=== PATIENT | female | born 1970 | race Caucasian/White ===

== ENCOUNTER 2016-10-03 13:39 | Emergency (ER) | payer MEDICAID ==
[~2016-10-03] VITALS: Ht 174 cm; Wt 65.5 kg
[2016-10-03 13:42] VITALS: BP 136/93
== END 2016-10-03 15:08 | disposition left against medical advice (07) ==
LOC: ED 15:02
DX: R68.84 Jaw pain (principal); Z88.0 Allergy status to penicillin; Z88.8 Allergy status to other drugs, medicaments and biological substances

== ENCOUNTER 2017-05-02 11:01 | Emergency (ER) | payer MEDICAID ==
[~2017-05-02] VITALS: Ht 172.7 cm; Wt 66.4 kg
[2017-05-02] MEDS ORDERED: SODIUM CHLORIDE 0.9% 1,000 ML IV ONE (11:59)
[2017-05-02] MEDS ORDERED: SODIUM CHLORIDE 0.9% 1,000ML IVBOLUS ONE (12:00)
[2017-05-02 13:35] VITALS: BP 132/78
[2017-05-02 13:38] LABS: BASOPHILS # (AUTO) 0.01 x10^3/uL (0-0.1); BASOPHILS % (AUTO) 0 % (0-1); EOSINOPHILS # (AUTO) 0.02 x10^3/uL (0-0.4); EOSINOPHILS % (AUTO) 0 % (1-7); LYMPHOCYTES # (AUTO) 0.89 x10^3/uL (1-3.4); LYMPHOCYTES % (AUTO) 9 % (22-44); MD NO; MEAN CORPUSCULAR HEMOGLOBIN 31.1 pg (27.0-34.8); MEAN CORPUSCULAR HGB CONC 33.5 g/dL (32.4-35.8); MEAN CORPUSCULAR VOLUME 92.9 fL (80-100); MEAN PLATELET VOLUME 6.6 fL (7.4-10.4); MONOCYTES % (AUTO) 8 % (2-9); NEUTROPHILS # (AUTO) 8.27 x10^3/uL (1.8-6.8); NEUTROPHILS % (AUTO) 83 % (42-75); PLATELET COUNT 260 x10^3/uL (130-400); RED BLOOD COUNT 4.52 x10^6/uL (3.82-5.3)
[2017-05-02 13:50] LABS: ALBUMIN 3.4 g/dL (3.4-5.0); ANION GAP 5 mmol/L (5-15); CALCIUM 8.5 mg/dL (8.5-10.1); CHLORIDE 103 mmol/L (98-107); CREATININE 0.73 mg/dL (0.55-1.02)
[2017-05-02 13:53] LABS: MICROSCOPIC INDICATED
[2017-05-02] MEDS ORDERED: KETOROLAC 30 MG/1 ML IM ONE (14:00)
[2017-05-02 14:04] LABS: CULTURE INDICATED? YES
== END 2017-05-02 14:21 | disposition home or self-care (01) ==
LOC: ED 14:15
DX: J06.9 Acute upper respiratory infection, unspecified (principal); N30.00 Acute cystitis without hematuria; F17.210 Nicotine dependence, cigarettes, uncomplicated; F15.10 Other stimulant abuse, uncomplicated; Z88.0 Allergy status to penicillin
CPT/HCPCS: 36415; 71046; 80048; 81001; 82040; 85025; 87077; 87086; 87186; 93005; 99285

== ENCOUNTER 2017-09-15 20:12 | Emergency (ER) | payer MEDICAID ==
[~2017-09-15] VITALS: Ht 172.7 cm; Wt 70.9 kg
[2017-09-15 20:13] VITALS: BP 127/81
[2017-09-15] MEDS ORDERED: IBUPROFEN 200 MG TABLET PO ONE (20:30)
[2017-09-15] MEDS ORDERED: IBUPROFEN 200 MG TABLET ONE (20:36)
[2017-09-15] MEDS ORDERED: DEXAMETHASONE 4 MG TABLET ONE (20:36)
== END 2017-09-15 21:09 | disposition home or self-care (01) ==
LOC: ED 21:03
DX: J02.8 Acute pharyngitis due to other specified organisms (principal); B97.89 Other viral agents as the cause of diseases classified elsewhere
CPT/HCPCS: 99281

== ENCOUNTER 2018-01-03 21:49 | Emergency (ER) | payer MEDICAID ==
[~2018-01-03] VITALS: Ht 172.7 cm; Wt 70.0 kg
[2018-01-03 21:54] VITALS: BP 132/85
[2018-01-04 00:07] LABS: MICROSCOPIC INDICATED
[2018-01-04 00:09] LABS: BASOPHILS % (AUTO) 0 % (0-1); EOSINOPHILS # (AUTO) 0.07 x10^3/uL (0-0.4); EOSINOPHILS % (AUTO) 1 % (1-7); LYMPHOCYTES # (AUTO) 0.37 x10^3/uL (1-3.4); LYMPHOCYTES % (AUTO) 3 % (22-44); MD NO; MEAN CORPUSCULAR HEMOGLOBIN 32.1 pg (27.0-34.8); MEAN CORPUSCULAR HGB CONC 33.9 g/dL (32.4-35.8); MEAN CORPUSCULAR VOLUME 94.9 fL (80-100); MEAN PLATELET VOLUME 7.2 fL (7.4-10.4); MONOCYTES # (AUTO) 0.47 x10^3/uL (0.2-0.8); MONOCYTES % (AUTO) 3 % (2-9); NEUTROPHILS % (AUTO) 94 % (42-75); PLATELET COUNT 278 x10^3/uL (130-400); RED BLOOD COUNT 4.89 x10^6/uL (3.82-5.3); RED CELL DISTRIBUTION WIDTH 13.5 % (9.6-15.2)
[2018-01-04 00:12] LABS: AMPHETAMINE SCREEN, URINE Positive (Negative); BARBITURATE SCREEN, URINE Negative (Negative); BENZODIAZEPINE SCREEN, URINE Negative (Negative); CANNABINOID SCREEN, URINE Positive (Negative); COCAINE SCREEN, URINE Negative (Negative); METHADONE SCREEN, URINE Negative (Negative); OPIATE SCREEN, URINE Negative (Negative)
[2018-01-04 00:19] LABS: ALANINE AMINOTRANSFERASE 31 U/L (12-78); ALBUMIN 3.8 g/dL (3.4-5.0); ANION GAP 3 mmol/L (5-15); CALCIUM 8.8 mg/dL (8.5-10.1); CHLORIDE 105 mmol/L (98-107); CREATININE 0.94 mg/dL (0.55-1.02)
[2018-01-04 00:23] LABS: ALKALINE PHOSPHATASE 82 U/L (45-117); BILIRUBIN,TOTAL 0.8 mg/dL (0.2-1.0); TOTAL PROTEIN 8.2 g/dL (6.4-8.2)
[2018-01-04 01:02] LABS: CULTURE INDICATED? NO
== END 2018-01-04 01:56 | disposition home or self-care (01) ==
LOC: ED 23:59
DX: R10.13 Epigastric pain (principal); R11.2 Nausea with vomiting, unspecified; Z72.9 Problem related to lifestyle, unspecified
CPT/HCPCS: 36415; 80053; 80307; 81001; 83690; 84703; 85025; 99284

== ENCOUNTER 2018-01-11 17:34 | Emergency (ER) | payer MEDICAID ==
[~2018-01-11] VITALS: Ht 172.7 cm; Wt 70.0 kg
[2018-01-11 17:38] VITALS: BP 145/99
== END 2018-01-11 18:19 | disposition left against medical advice (07) ==
LOC: ED 18:13
DX: S61.511A Laceration without foreign body of right wrist, initial encounter (principal); F17.200 Nicotine dependence, unspecified, uncomplicated; W19.XXXA Unspecified fall, initial encounter; Y93.89 Activity, other specified; Y92.410 Unspecified street and highway as the place of occurrence of the external cause; Y99.8 Other external cause status
CPT/HCPCS: 99283

== ENCOUNTER 2018-07-06 23:42 | Emergency (ER) | payer MEDICAID ==
[~2018-07-06] VITALS: Ht 172.7 cm; Wt 68.0 kg
[2018-07-06 23:51] VITALS: BP 126/78
== END 2018-07-07 00:07 | disposition home or self-care (01) ==
LOC: ED 07-07 00:01
DX: F15.10 Other stimulant abuse, uncomplicated (principal); Z76.0 Encounter for issue of repeat prescription; Z72.9 Problem related to lifestyle, unspecified
CPT/HCPCS: 99283

== ENCOUNTER 2018-07-25 02:07 | Emergency (ER) | payer MEDICAID ==
[~2018-07-25] VITALS: Ht 172.7 cm; Wt 67.5 kg
[2018-07-25 02:12] VITALS: BP 166/104
--- NOTE | 2018-07-25 02:43 | NUR ---
PT presented with c/o rash and itching, pt reports itching " all over my body", pt refusing to answer further questions, stated " i'm not answering anything until i get something to stop the itching", notified pt that erp will be in to see her, pt denies further needs at this time
[2018-07-25] MEDS ORDERED: DEXAMETHASONE 4 MG TABLET ONE (03:17)
[2018-07-25] MEDS ORDERED: DIPHENHYDRAMINE 25 MG CAPSULE ONE (03:17)
--- NOTE | 2018-07-25 03:20 | NUR ---
pt medicated per mar
[2018-07-25] MEDS ORDERED: DEXAMETHASONE 4 MG TABLET PO ONE (03:30)
[2018-07-25] MEDS ORDERED: DIPHENHYDRAMINE 25 MG CAPSULE PO ONE (03:30)
--- NOTE | 2018-07-25 03:45 | NUR ---
pt refusing vs, denies needs a this time
== END 2018-07-25 04:13 | disposition home or self-care (01) ==
LOC: ED 02:58
DX: R21 Rash and other nonspecific skin eruption (principal); F15.10 Other stimulant abuse, uncomplicated; F15.129 Other stimulant abuse with intoxication, unspecified; F45.8 Other somatoform disorders; Z72.9 Problem related to lifestyle, unspecified; F17.200 Nicotine dependence, unspecified, uncomplicated; F41.1 Generalized anxiety disorder; F32.9 Major depressive disorder, single episode, unspecified
CPT/HCPCS: 99283; Q0163

== ENCOUNTER 2018-08-03 21:10 | Emergency (ER) | payer MEDICAID ==
[~2018-08-03] VITALS: Ht 172.7 cm; Wt 69.1 kg
[2018-08-03 21:22] VITALS: BP 132/84
--- NOTE | 2018-08-03 21:56 | NUR ---
REPORT TO CURLY ZACARIAS WHO ASSUMED CARE OF PT.
[2018-08-03] MEDS ORDERED: IBUPROFEN 800 MG TABLET PO ONE (22:00)
[2018-08-03] MEDS ORDERED: IBUPROFEN 200 MG TABLET ONE (22:01)
--- NOTE | 2018-08-03 22:49 | NUR ---
Pt given warm blanket, crackers and water per request and PA authorization
== END 2018-08-03 23:31 | disposition home or self-care (01) ==
LOC: ED 22:15
DX: B34.9 Viral infection, unspecified (principal)
CPT/HCPCS: 71046; 99283

== ENCOUNTER 2018-09-28 02:01 | Emergency (ER) | payer MEDICAID ==
[~2018-09-28] VITALS: Ht 172.7 cm; Wt 66.5 kg
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
--- NOTE | 2018-09-28 02:34 | NUR ---
PT BACK TO ROOM NOW.
[2018-09-28 04:02] VITALS: BP 113/79
--- NOTE | 2018-09-28 04:08 | NUR ---
PT SLEEPING IN [place]. RESPS EVEN AND UNLABORED. BP/SPO2 MONITORS IN PLACE. CALL LIGHT WITHIN REACH. AWAITING DC NOW.
--- NOTE | 2018-09-28 04:14 | NUR ---
PT GIVEN DC INSTRUCTIONS. PT'S AOX4. RESPS EVEN AND UNLABORED. NO ACUTE DISTRESS AT DC.
== END 2018-09-28 04:15 | disposition home or self-care (01) ==
LOC: ED 02:16
DX: S05.12XA Contusion of eyeball and orbital tissues, left eye, initial encounter (principal); G89.11 Acute pain due to trauma; M25.531 Pain in right wrist; Z72.9 Problem related to lifestyle, unspecified; Y04.8XXA Assault by other bodily force, initial encounter; Y93.89 Activity, other specified; Y92.89 Other specified places as the place of occurrence of the external cause; Y99.8 Other external cause status
CPT/HCPCS: 70486; 99284

== ENCOUNTER 2018-10-11 20:20 | Emergency (ER) | payer MEDICAID ==
[~2018-10-11] VITALS: Ht 172.7 cm; Wt 65.6 kg
[2018-10-11 20:22] VITALS: BP 118/82
[2018-10-11] MEDS ORDERED: IBUPROFEN 800 MG TABLET PO ONE (21:00)
[2018-10-11] MEDS ORDERED: IBUPROFEN 200 MG TABLET ONE (21:03)
--- NOTE | 2018-10-11 21:50 | NUR ---
PT STATES UNABLE TO URINATE. ERP NOTIFIED.
== END 2018-10-11 22:14 | disposition home or self-care (01) ==
LOC: ED 20:42
DX: G89.11 Acute pain due to trauma (principal); R10.2 Pelvic and perineal pain; M54.2 Cervicalgia; Z72.9 Problem related to lifestyle, unspecified; F32.9 Major depressive disorder, single episode, unspecified; F17.200 Nicotine dependence, unspecified, uncomplicated; V03.99XA Pedestrian with other conveyance injured in collision with car, pick-up truck or van, unspecified whether traffic or nontraffic accident, initial encounter; Y93.89 Activity, other specified; Y92.410 Unspecified street and highway as the place of occurrence of the external cause; Y99.8 Other external cause status
CPT/HCPCS: 72110; 72125; 72190; 99284

== ENCOUNTER 2019-03-08 08:32 | Inpatient (IN) | payer MEDICAID ==
[~2019-03-08] VITALS: Ht 172.7 cm; Wt 72.1 kg
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
--- NOTE | 2019-03-08 10:25 | NUR ---
PT TO BE ADMITTED, PIV INITIATED, LAB IN TO DRAW PT. NAD NOTED
[2019-03-08] MEDS ORDERED: CEFTRIAXONE PMX 1GM/50ML 50 ML ONE (10:29)
[2019-03-08] MEDS ORDERED: AZITHROMYCIN 500 MG in SODIUM CHLORIDE 0.9% 250 ML IVPB ONE (10:30)
[2019-03-08] MEDS ORDERED: CEFTRIAXONE PMX 1GM/50ML 50 ML IVPB ONE (10:30)
[2019-03-08] MEDS ORDERED: SODIUM CHLORIDE FLUSH 10ML SYR IVF ONE (10:30)
--- NOTE | 2019-03-08 10:39 | NUR ---
AWAITING BC TO ADMIN ABX
--- NOTE | 2019-03-08 10:57 | NUR ---
ABX AMEYA, PT RESTING ON GURRADHA, NAD NOTED
[2019-03-08 11:01] LABS: ALANINE AMINOTRANSFERASE 72 U/L (12-78); ALBUMIN 2.7 g/dL (3.4-5.0); ANION GAP 9 mmol/L (5-15); CALCIUM 8.7 mg/dL (8.5-10.1); CHLORIDE 95 mmol/L (98-107); CREATININE 0.94 mg/dL (0.55-1.02)
[2019-03-08 11:03] LABS: ALKALINE PHOSPHATASE 246 U/L (45-117); BILIRUBIN,TOTAL 1.5 mg/dL (0.2-1.0); TOTAL PROTEIN 8.5 g/dL (6.4-8.2)
[2019-03-08 11:04] LABS: MEAN CORPUSCULAR HEMOGLOBIN 31.6 pg (27.0-34.8); MEAN CORPUSCULAR HGB CONC 32.6 g/dL (32.4-35.8); MEAN CORPUSCULAR VOLUME 96.8 fL (80-100); MEAN PLATELET VOLUME 6.9 fL (7.4-10.4); PLATELET COUNT 305 x10^3/uL (130-400); RED BLOOD COUNT 4.38 x10^6/uL (3.82-5.3); RED CELL DISTRIBUTION WIDTH 13.6 % (9.6-15.2)
[2019-03-08 11:22] LABS: BASOPHILS # (AUTO) 0.01 x10^3/uL (0-0.1); BASOPHILS % (AUTO) 0 % (0-1); EOSINOPHILS % (AUTO) 0 % (1-7); LYMPHOCYTES % (AUTO) 5 % (22-44); MD SCAN; MONOCYTES # (AUTO) 1.08 x10^3/uL (0.2-0.8); MONOCYTES % (AUTO) 6 % (2-9); NEUTROPHILS # (AUTO) 15.35 x10^3/uL (1.8-6.8); NEUTROPHILS % (AUTO) 89 % (42-75)
[2019-03-08] MEDS ORDERED: SODIUM CHLORIDE FLUSH 10ML SYR IVF PRN (11:30)
--- NOTE | 2019-03-08 12:06 | NUR ---
REPORT TO BERNADETTE RAWLS, AWAITING TRANSPORT
--- NOTE | 2019-03-08 12:25 | NUR ---
RASH NOTED ON BILAT THIGHS, ADMITTING MD AT BEDSIDE, AZITHROMYCIN STOPPED PER MD ORDER.
--- NOTE | 2019-03-08 12:57 | NUR ---
ATTEMPTED TO CALL REPORT, RN TO CALL BACK
[2019-03-08] MEDS ORDERED: BISACODYL 10 MG SUPP PR PRN (13:00)
[2019-03-08] MEDS ORDERED: DOCUSATE 100 MG CAPSULE PO PRN (13:00)
[2019-03-08] MEDS ORDERED: POLYETHYLENE GLYCOL 17 GM PACKET PO PRN (13:00)
[2019-03-08] MEDS ORDERED: SODIUM CHLORIDE 0.9% 1,000ML IVBOLUS ONE (13:00)
[2019-03-08] MEDS ORDERED: ONDANSETRON 2MG/ML, 2ML IVPush PRN (13:00)
--- NOTE | 2019-03-08 13:18 | NUR ---
REPORT CALLED, AWAITING TRANSPORT
[2019-03-08 13:25] LABS: TROPONIN I < 0.015 ng/mL (0.000-0.045)
[2019-03-08 14:28] VITALS: BP 107/69
[2019-03-08] MEDS: LEVOFLOXACIN/PMX 750MG/150ML 150 ML IV SCH (14:43)
[2019-03-08] MEDS: NS + 20MEQ KCL 1,000 ML IV SCH (14:43)
[2019-03-08 15:58] LABS: RAPID INFLUENZA A Negative (Negative); RAPID INFLUENZA B Negative (Negative)
[2019-03-08] MEDS: ACETAMINOPHEN 325 MG TABLET PO PRN ×2 (16:18→20:41)
[2019-03-08] MEDS: LACTOBACILLUS CHEW TABLET PO SCH ×2 (16:18→20:41)
[2019-03-08 18:09] LABS: TROPONIN I < 0.015 ng/mL (0.000-0.045)
[2019-03-08 20:17] VITALS: BP 93/57
[2019-03-09 02:00] VITALS: BP 98/69
[2019-03-09] MEDS: NS + 20MEQ KCL 1,000 ML IV SCH ×2 (02:06→15:29)
[2019-03-09 04:56] LABS: BASOPHILS % (AUTO) 0 % (0-1); EOSINOPHILS # (AUTO) 0.04 x10^3/uL (0-0.4); EOSINOPHILS % (AUTO) 0 % (1-7); LYMPHOCYTES # (AUTO) 1.39 x10^3/uL (1-3.4); LYMPHOCYTES % (AUTO) 10 % (22-44); MD NO; MEAN CORPUSCULAR HEMOGLOBIN 31.7 pg (27.0-34.8); MEAN CORPUSCULAR HGB CONC 32.8 g/dL (32.4-35.8); MEAN CORPUSCULAR VOLUME 96.9 fL (80-100); MEAN PLATELET VOLUME 6.7 fL (7.4-10.4); MONOCYTES # (AUTO) 1.25 x10^3/uL (0.2-0.8); MONOCYTES % (AUTO) 9 % (2-9); NEUTROPHILS # (AUTO) 10.65 x10^3/uL (1.8-6.8); NEUTROPHILS % (AUTO) 80 % (42-75); PLATELET COUNT 297 x10^3/uL (130-400); RED BLOOD COUNT 3.78 x10^6/uL (3.82-5.3); RED CELL DISTRIBUTION WIDTH 13.6 % (9.6-15.2)
[2019-03-09 05:00] LABS: ALBUMIN 1.9 g/dL (3.4-5.0); ANION GAP 4 mmol/L (5-15); CHLORIDE 106 mmol/L (98-107)
[2019-03-09 05:12] LABS: % IRON SATURATION 16 % (20-55); ALANINE AMINOTRANSFERASE 45 U/L (12-78); ALKALINE PHOSPHATASE 193 U/L (45-117); CALCIUM 8.2 mg/dL (8.5-10.1); CREATINE KINASE, TOTAL 25 U/L (26-192); IRON LEVEL 33 mcg/dL (50-170); TOTAL IRON BINDING CAPACITY 211 mcg/dL (250-450); TOTAL PROTEIN 6.6 g/dL (6.4-8.2)
[2019-03-09] MEDS: LACTOBACILLUS CHEW TABLET PO SCH ×4 (05:16→20:33)
[2019-03-09] MEDS: ACETAMINOPHEN 325 MG TABLET PO PRN ×2 (05:49→10:47)
[2019-03-09 08:00] VITALS: BP 90/55
[2019-03-09] MEDS ORDERED: SODIUM CHLORIDE 0.9% 1,000 ML IV SCH (08:00)
[2019-03-09] MEDS: LEVOFLOXACIN/PMX 750MG/150ML 150 ML IV SCH (12:51)
[2019-03-09 13:23] VITALS: BP 99/63
[2019-03-09] MEDS: ENOXAPARIN 40 MG/0.4 ML SQ SCH (15:31)
[2019-03-09] MEDS: GUAIFENESIN 200 MG TABLET PO SCH ×2 (15:31→20:33)
[2019-03-09] MEDS ORDERED: OMNIPAQUE 350 MG/ML, 100ML BOTTLE ONE (17:31)
[2019-03-09 20:13] VITALS: BP 106/70
[2019-03-10] MEDS: NS + 20MEQ KCL 1,000 ML IV SCH ×2 (00:48→13:57)
[2019-03-10 01:39] VITALS: BP 108/67
[2019-03-10 05:33] LABS: BASOPHILS # (AUTO) 0.02 x10^3/uL (0-0.1); BASOPHILS % (AUTO) 0 % (0-1); EOSINOPHILS % (AUTO) 1 % (1-7); LYMPHOCYTES # (AUTO) 1.29 x10^3/uL (1-3.4); LYMPHOCYTES % (AUTO) 11 % (22-44); MD NO; MEAN CORPUSCULAR HEMOGLOBIN 31.6 pg (27.0-34.8); MEAN CORPUSCULAR HGB CONC 32.7 g/dL (32.4-35.8); MEAN CORPUSCULAR VOLUME 96.9 fL (80-100); MEAN PLATELET VOLUME 6.7 fL (7.4-10.4); MONOCYTES # (AUTO) 0.83 x10^3/uL (0.2-0.8); MONOCYTES % (AUTO) 7 % (2-9); NEUTROPHILS # (AUTO) 9.04 x10^3/uL (1.8-6.8); NEUTROPHILS % (AUTO) 80 % (42-75); PLATELET COUNT 369 x10^3/uL (130-400); RED BLOOD COUNT 3.57 x10^6/uL (3.82-5.3)
[2019-03-10 05:39] LABS: ALBUMIN 1.8 g/dL (3.4-5.0); ANION GAP 4 mmol/L (5-15); CALCIUM 7.9 mg/dL (8.5-10.1); CHLORIDE 106 mmol/L (98-107)
[2019-03-10 05:43] LABS: ALANINE AMINOTRANSFERASE 33 U/L (12-78); ALKALINE PHOSPHATASE 194 U/L (45-117); BILIRUBIN,TOTAL 0.3 mg/dL (0.2-1.0); CREATININE 0.68 mg/dL (0.55-1.02); TOTAL PROTEIN 6.1 g/dL (6.4-8.2)
[2019-03-10] MEDS: GUAIFENESIN 200 MG TABLET PO SCH ×4 (06:21→20:39)
[2019-03-10] MEDS: LACTOBACILLUS CHEW TABLET PO SCH ×4 (06:21→20:39)
[2019-03-10 06:40] VITALS: BP 99/56
[2019-03-10] MEDS: LEVOFLOXACIN/PMX 750MG/150ML 150 ML IV SCH (12:21)
[2019-03-10] MEDS: ENOXAPARIN 40 MG/0.4 ML SQ SCH (14:00)
[2019-03-10 14:59] VITALS: BP 119/75
[2019-03-10 20:08] VITALS: BP 117/76
[2019-03-11 01:24] VITALS: BP 103/68
[2019-03-11 04:40] LABS: BASOPHILS # (AUTO) 0.04 x10^3/uL (0-0.1); BASOPHILS % (AUTO) 0 % (0-1); EOSINOPHILS % (AUTO) 1 % (1-7); LYMPHOCYTES # (AUTO) 1.55 x10^3/uL (1-3.4); LYMPHOCYTES % (AUTO) 18 % (22-44); MD NO; MEAN CORPUSCULAR HEMOGLOBIN 31.4 pg (27.0-34.8); MEAN CORPUSCULAR HGB CONC 32.4 g/dL (32.4-35.8); MEAN CORPUSCULAR VOLUME 96.9 fL (80-100); MEAN PLATELET VOLUME 6.3 fL (7.4-10.4); MONOCYTES # (AUTO) 0.66 x10^3/uL (0.2-0.8); MONOCYTES % (AUTO) 8 % (2-9); NEUTROPHILS # (AUTO) 6.28 x10^3/uL (1.8-6.8); NEUTROPHILS % (AUTO) 73 % (42-75); PLATELET COUNT 476 x10^3/uL (130-400); RED BLOOD COUNT 3.75 x10^6/uL (3.82-5.3); RED CELL DISTRIBUTION WIDTH 14.2 % (9.6-15.2)
[2019-03-11] MEDS: NS + 20MEQ KCL 1,000 ML IV SCH (05:07)
[2019-03-11] MEDS: LACTOBACILLUS CHEW TABLET PO SCH ×2 (05:08→11:38)
[2019-03-11] MEDS: GUAIFENESIN 200 MG TABLET PO SCH ×2 (05:08→11:38)
[2019-03-11 07:02] VITALS: BP 114/75
[2019-03-11] MEDS ORDERED: LEVOFLOXACIN 750 MG TABLET PO SCH (09:00)
[2019-03-11] MEDS: ACETAMINOPHEN 325 MG TABLET PO PRN (09:37)
== END 2019-03-11 12:45 | disposition left against medical advice (07) | DRG 871 ==
LOC: ED 10:25 → EDIP 11:25 → SUATTDRO 11:32 → 4WST 14:01
PROVIDERS: ADMIT Internal Medicine; ATTEND Internal Medicine
DX: A41.9 Sepsis, unspecified organism (principal); J18.1 Lobar pneumonia, unspecified organism; E87.1 Hypo-osmolality and hyponatremia; E87.6 Hypokalemia; E88.09 Other disorders of plasma-protein metabolism, not elsewhere classified; Z59.0 Homelessness; Z53.29 Procedure and treatment not carried out because of patient's decision for other reasons; Z88.0 Allergy status to penicillin; Z88.8 Allergy status to other drugs, medicaments and biological substances
CPT/HCPCS: 36415; 71046; 71260; 76700; 80053; 80074; 82550; 83540; 83550; 83605; 83735; 84100; 84145; 84443; 84484; 85025; 87040; 87400; 93005; 99285; G0378; J0456; J0696; J1650; J1956; J3480; Q9967; J7030; J7050

== ENCOUNTER 2019-03-30 00:38 | Emergency (ER) | payer MEDICAID ==
[~2019-03-30] VITALS: Ht 172.7 cm; Wt 69.0 kg
[2019-03-30 00:51] VITALS: BP 145/97
--- NOTE | 2019-03-30 00:51 | NUR ---
FIRST CONTACT WITH PT. PT REPORTS CHEST PRESSURE(RIGHT SIDED RIB PAIN) AND SOB SEEN HERE FOR SAME SEVERAL DAYS AGO PER PT. PT REFUSED EKG IN TRIAGE. PT'S AOX4. RESPS EVEN AND UNLABORED. BP/SPO2 MONITORS IN PLACE. CALL LIGHT WITHIN REACH. EDMD AT BEDSIDE TO EVALUAT AT THIS TIME.
[2019-03-30] MEDS ORDERED: IBUPROFEN 600 MG TABLET ONE (00:58)
[2019-03-30] MEDS ORDERED: IBUPROFEN 600 MG TABLET PO ONE (01:00)
== END 2019-03-30 01:47 | disposition home or self-care (01) ==
LOC: ED 01:03
DX: R07.89 Other chest pain (principal); F17.200 Nicotine dependence, unspecified, uncomplicated
CPT/HCPCS: 93005; 99283

== ENCOUNTER 2019-03-31 05:41 | Emergency (ER) | payer MEDICAID ==
[~2019-03-31] VITALS: Ht 172.7 cm; Wt 69.8 kg
[2019-03-31] MEDS ORDERED: SODIUM CHLORIDE FLUSH 10ML SYR IVF ONE (06:00)
--- NOTE | 2019-03-31 06:19 | NUR ---
PT WITH IV STARTED AND BLOOD TO LAB. PT AWARE OF NEED FOR URINE.
[2019-03-31 06:28] LABS: BASOPHILS # (AUTO) 0.07 x10^3/uL (0-0.1); BASOPHILS % (AUTO) 1 % (0-1); EOSINOPHILS # (AUTO) 0.07 x10^3/uL (0-0.4); EOSINOPHILS % (AUTO) 1 % (1-7); LYMPHOCYTES # (AUTO) 1.41 x10^3/uL (1-3.4); LYMPHOCYTES % (AUTO) 23 % (22-44); MD NO; MEAN CORPUSCULAR HEMOGLOBIN 31.7 pg (27.0-34.8); MEAN CORPUSCULAR HGB CONC 32.8 g/dL (32.4-35.8); MEAN CORPUSCULAR VOLUME 96.7 fL (80-100); MEAN PLATELET VOLUME 6.4 fL (7.4-10.4); MONOCYTES # (AUTO) 0.49 x10^3/uL (0.2-0.8); MONOCYTES % (AUTO) 8 % (2-9); NEUTROPHILS % (AUTO) 66 % (42-75); PLATELET COUNT 294 x10^3/uL (130-400)
[2019-03-31 06:36] LABS: ALBUMIN 3.4 g/dL (3.4-5.0); ANION GAP 5 mmol/L (5-15); CALCIUM 8.7 mg/dL (8.5-10.1); CHLORIDE 106 mmol/L (98-107)
[2019-03-31 06:42] LABS: ALANINE AMINOTRANSFERASE 25 U/L (12-78); ALKALINE PHOSPHATASE 96 U/L (45-117); BILIRUBIN,TOTAL 0.7 mg/dL (0.2-1.0); CREATININE 0.86 mg/dL (0.55-1.02); TOTAL PROTEIN 7.9 g/dL (6.4-8.2)
[2019-03-31] MEDS ORDERED: OMNIPAQUE 350 MG/ML, 100ML BOTTLE ONE (06:45)
--- NOTE | 2019-03-31 07:04 | NUR ---
PATIET AWARE URINE SAMPLE NEEDED, HOWEVER REFUSING AT THIS TIME.
--- NOTE | 2019-03-31 07:04 | NUR ---
REPORT RECIEVED FROM FRANCIA RAWLS. PATIENT TO IMAGING
--- NOTE | 2019-03-31 08:02 | NUR ---
PATIENT RESTING IN BED, NO COMPLAINTS AT THIS TIME.
[2019-03-31 08:11] VITALS: BP 116/59
--- NOTE | 2019-03-31 08:11 | NUR ---
DISCHARGE INSTRUCTIONS REVIEWED
--- NOTE | 2019-03-31 08:18 | NUR ---
PATIENT REFUSED DISCHARGE PAPERWORK/PRESCRIPTION.
== END 2019-03-31 08:21 | disposition home or self-care (01) ==
LOC: ED 06:22
DX: K59.00 Constipation, unspecified (principal); R10.31 Right lower quadrant pain; R10.11 Right upper quadrant pain; J15.9 Unspecified bacterial pneumonia; F17.210 Nicotine dependence, cigarettes, uncomplicated
CPT/HCPCS: 36415; 74177; 80053; 83690; 84703; 85025; 99284; Q9967

== ENCOUNTER 2019-06-01 21:24 | Emergency (ER) | payer MEDICAID ==
[~2019-06-01] VITALS: Ht 172.7 cm; Wt 71.5 kg
[2019-06-01] MEDS ORDERED: IBUPROFEN 600 MG TABLET PO ONE (22:00)
[2019-06-01] MEDS ORDERED: IBUPROFEN 200 MG TABLET ONE (22:00)
[2019-06-01] MEDS ORDERED: IBUPROFEN 200 MG TABLET PO ONE (22:00)
[2019-06-01 23:50] VITALS: BP 131/80
== END 2019-06-02 00:03 | disposition home or self-care (01) ==
LOC: ED 23:58
DX: M25.572 Pain in left ankle and joints of left foot (principal); L03.116 Cellulitis of left lower limb
CPT/HCPCS: 99283

== ENCOUNTER 2019-06-03 01:24 | Emergency (ER) | payer MEDICAID ==
[~2019-06-03] VITALS: Ht 165.1 cm; Wt 68.0 kg
--- NOTE | 2019-06-03 01:33 | NUR ---
pt with c/o chest pain that started last night. sternal. 12/01. no n/v. also c/o foot pain in the left foot from a wound that she was seen here for yesterday. also c/o pain in the neck and both wrists
[2019-06-03] MEDS ORDERED: CEFTRIAXONE 1,000 MG IM ONE (02:00)
[2019-06-03] MEDS ORDERED: SULFAMETH./TRIMETHOPRIM DS 800MG/160MG TABLET PO ONE (02:00)
[2019-06-03 02:17] LABS: BASOPHILS # (AUTO) 0.01 x10^3/uL (0-0.1); BASOPHILS % (AUTO) 0 % (0-1); EOSINOPHILS # (AUTO) 0.06 x10^3/uL (0-0.4); EOSINOPHILS % (AUTO) 1 % (1-7); LYMPHOCYTES % (AUTO) 13 % (22-44); MD NO; MEAN CORPUSCULAR HEMOGLOBIN 30.7 pg (27.0-34.8); MEAN CORPUSCULAR HGB CONC 33.6 g/dL (32.4-35.8); MEAN CORPUSCULAR VOLUME 91.2 fL (80-100); MEAN PLATELET VOLUME 6.1 fL (7.4-10.4); MONOCYTES # (AUTO) 0.77 x10^3/uL (0.2-0.8); MONOCYTES % (AUTO) 8 % (2-9); NEUTROPHILS % (AUTO) 79 % (42-75); PLATELET COUNT 307 x10^3/uL (130-400); RED BLOOD COUNT 4.47 x10^6/uL (3.82-5.3); RED CELL DISTRIBUTION WIDTH 13.2 % (9.6-15.2)
[2019-06-03 02:30] LABS: ALBUMIN 3.1 g/dL (3.4-5.0); ANION GAP 3 mmol/L (5-15); CALCIUM 8.5 mg/dL (8.5-10.1); CHLORIDE 105 mmol/L (98-107)
[2019-06-03 02:34] LABS: TROPONIN I < 0.015 ng/mL (0.000-0.045)
[2019-06-03] MEDS ORDERED: SULFAMETH./TRIMETHOPRIM DS 800MG/160MG TABLET ONE (03:12)
[2019-06-03] MEDS ORDERED: CEFTRIAXONE 1,000 MG ONE (03:12)
[2019-06-03] MEDS ORDERED: LIDOCAINE-MPF 1%, 2ML ONE ×2 (03:13→03:14)
[2019-06-03 03:26] VITALS: BP 134/83
--- NOTE | 2019-06-03 04:10 | NUR ---
pt provided a cane for help walking since she has pain in the right heal of the foot. pt ambulatory independently with a cane to the discharge desk. pt provided taxi voucher to location of her choice.
== END 2019-06-03 04:13 | disposition home or self-care (01) ==
LOC: ED 02:59
DX: L03.116 Cellulitis of left lower limb (principal); R07.89 Other chest pain; R06.02 Shortness of breath
CPT/HCPCS: 36415; 71045; 80048; 82040; 84484; 84703; 85025; 93005; 96372; 99285; J0696

== ENCOUNTER 2019-10-28 04:01 | Emergency (ER) | payer MEDICAID ==
[~2019-10-28] VITALS: Ht 170.2 cm; Wt 72.2 kg
--- NOTE | 2019-10-28 04:07 | NUR ---
PT CALLED FOR TRIAGE NA. PT IN BATHROOM
[2019-10-28 04:08] VITALS: BP 124/85
== END 2019-10-28 04:25 ==
LOC: ED 04:19
DX: B35.0 Tinea barbae and tinea capitis (principal); F17.210 Nicotine dependence, cigarettes, uncomplicated
CPT/HCPCS: 99282; 99406

== ENCOUNTER 2020-01-21 05:13 | Emergency (ER) | payer MEDICAID ==
[~2020-01-21] VITALS: Ht 172.7 cm; Wt 69.9 kg
--- NOTE | 2020-01-21 05:16 | NUR ---
[employer]: PT CALLED FOR TRIAGE. NO ANSWER
[2020-01-21 05:24] VITALS: BP 114/80
--- NOTE | 2020-01-21 05:29 | NUR ---
49/F. Pt feeling faint, hands went numb, went to a friends then had a syncopal episode. Pt states "I rested then came here". H/A.
[2020-01-21 06:11] LABS: BASOPHILS # (AUTO) 0.02 x10^3/uL (0-0.1); BASOPHILS % (AUTO) 0 % (0-1); EOSINOPHILS # (AUTO) 0.04 x10^3/uL (0-0.4); EOSINOPHILS % (AUTO) 1 % (1-7); LYMPHOCYTES # (AUTO) 1.31 x10^3/uL (1-3.4); LYMPHOCYTES % (AUTO) 24 % (22-44); MD NO; MEAN CORPUSCULAR HEMOGLOBIN 30.8 pg (27.0-34.8); MEAN CORPUSCULAR HGB CONC 32.6 g/dL (32.4-35.8); MEAN PLATELET VOLUME 6.5 fL (7.4-10.4); MONOCYTES # (AUTO) 0.33 x10^3/uL (0.2-0.8); MONOCYTES % (AUTO) 6 % (2-9); NEUTROPHILS # (AUTO) 3.68 x10^3/uL (1.8-6.8); NEUTROPHILS % (AUTO) 69 % (42-75); PLATELET COUNT 255 x10^3/uL (130-400); RED BLOOD COUNT 4.54 x10^6/uL (3.82-5.3); RED CELL DISTRIBUTION WIDTH 13.4 % (9.6-15.2)
[2020-01-21 06:20] LABS: ALANINE AMINOTRANSFERASE 25 U/L (12-78); ALBUMIN 3.6 g/dL (3.4-5.0); CALCIUM 8.9 mg/dL (8.5-10.1); CREATININE 0.89 mg/dL (0.55-1.02)
[2020-01-21 06:22] LABS: ALKALINE PHOSPHATASE 77 U/L (45-117); BILIRUBIN,TOTAL 0.7 mg/dL (0.2-1.0); TOTAL PROTEIN 7.8 g/dL (6.4-8.2)
[2020-01-21 06:30] LABS: ANION GAP 6 mmol/L (5-15); CHLORIDE 109 mmol/L (98-107)
--- NOTE | 2020-01-21 07:13 | NUR ---
Report given to CURLY Stacy
== END 2020-01-21 08:34 | disposition home or self-care (01) ==
LOC: ED 06:26
DX: R42 Dizziness and giddiness (principal); R55 Syncope and collapse
CPT/HCPCS: 36415; 80053; 80307; 85025; 93005; 99284

== ENCOUNTER 2020-03-03 03:54 | Emergency (ER) | payer MEDICAID ==
[~2020-03-03] VITALS: Ht 172.7 cm; Wt 73.5 kg
--- NOTE | 2020-03-03 04:03 | NUR ---
UTILIZATION SPECIALIST: PT CALLED FOR TRIAGE NO ANSWER
[2020-03-03 04:14] VITALS: BP 155/90
--- NOTE | 2020-03-03 04:28 | NUR ---
PT STATES IN TRIAGE "I HAVE MOCTEZUMA BITE ON MY RIGHT HAND, I GOT IT QUICK, I WAS ONLY OUT THERE FOR LIKE 20 MINUTES. BUT IT THAWED OUT", PT IN NAD ON [employer] READING A MAGAZINE
== END 2020-03-03 04:41 | disposition home or self-care (01) ==
LOC: ED 04:30
DX: T33.522A Superficial frostbite of left hand, initial encounter (principal); T33.521A Superficial frostbite of right hand, initial encounter; Z88.0 Allergy status to penicillin; X58.XXXA Exposure to other specified factors, initial encounter; Y93.89 Activity, other specified; Y92.410 Unspecified street and highway as the place of occurrence of the external cause; Y99.8 Other external cause status
CPT/HCPCS: 99282

== ENCOUNTER 2020-07-06 05:47 | Emergency (ER) | payer MEDICAID ==
[~2020-07-06] VITALS: Ht 172.7 cm; Wt 75.0 kg
[2020-07-06 05:48] VITALS: BP 117/78
--- NOTE | 2020-07-06 06:14 | NUR ---
PT SHOUTING AT RN UPON DC, SECURITY TO ASSIST WITH DC
== END 2020-07-06 06:15 | disposition home or self-care (01) ==
LOC: ED 06:11
DX: M79.641 Pain in right hand (principal); M79.642 Pain in left hand; F17.200 Nicotine dependence, unspecified, uncomplicated; X31.XXXA Exposure to excessive natural cold, initial encounter; Y93.89 Activity, other specified; Y92.89 Other specified places as the place of occurrence of the external cause; Y99.8 Other external cause status
CPT/HCPCS: 99283

== ENCOUNTER 2020-12-10 04:59 | Emergency (ER) | payer MEDICAID ==
[~2020-12-10] VITALS: Ht 174 cm; Wt 72.6 kg
[2020-12-10 05:04] VITALS: BP 130/83
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
== END 2020-12-10 05:22 | disposition left against medical advice (07) ==
LOC: ED 05:10
DX: R51.9 Headache, unspecified (principal); K08.89 Other specified disorders of teeth and supporting structures; Z53.21 Procedure and treatment not carried out due to patient leaving prior to being seen by health care provider